=== PATIENT | female | born 1950 | race Caucasian/White ===

== ENCOUNTER 2021-01-18 11:19 | Outpatient (CLI) | payer MEDICARE, BC | END 2021-01-18 11:20 | disposition home or self-care (01) | LOC: CSHMAMMO 11:19 | PROVIDERS: ATTEND Internal Medicine | DX: Z12.31 Encounter for screening mammogram for malignant neoplasm of breast (principal); Z91.89 Other specified personal risk factors, not elsewhere classified; Z80.3 Family history of malignant neoplasm of breast | CPT/HCPCS: 77063; 77067 ==

== ENCOUNTER 2022-12-18 13:32 | Outpatient (CLI) | payer MEDICARE, BC | END 2022-12-18 13:33 | disposition home or self-care (01) | LOC: CSHMAMMO 13:32 | PROVIDERS: ATTEND Internal Medicine | DX: Z12.31 Encounter for screening mammogram for malignant neoplasm of breast (principal); Z80.3 Family history of malignant neoplasm of breast; Z91.89 Other specified personal risk factors, not elsewhere classified | CPT/HCPCS: 77063; 77067 ==

== ENCOUNTER 2024-06-12 12:57 | Outpatient (CLI) | payer MEDICARE, BC | END 2024-06-12 12:58 | disposition home or self-care (01) | LOC: CSHMAMMO 12:57 | PROVIDERS: ATTEND Nurse Practitioner | DX: Z12.31 Encounter for screening mammogram for malignant neoplasm of breast (principal); Z80.3 Family history of malignant neoplasm of breast; Z91.89 Other specified personal risk factors, not elsewhere classified | CPT/HCPCS: 77063; 77067 ==